=== PATIENT | female | born 1975 | race Caucasian/White ===

== ENCOUNTER 2016-09-27 03:04 | Emergency (ER) | payer MEDICAID ==
[~2016-09-27] VITALS: Ht 170.2 cm; Wt 86.0 kg
[2016-09-27] MEDS ORDERED: LIDOCAINE 1%, 20ML ONE (03:16)
[2016-09-27] MEDS ORDERED: BACITRACIN ZINC OINT 500U/GM, 0.9 GM ONE (04:11)
[2016-09-27 04:19] VITALS: BP 147/69
[2016-09-27] MEDS ORDERED: LIDOCAINE 1%, 10ML INFIL ONE (04:30)
[2016-09-27] MEDS ORDERED: LIDOCAINE 1%, 20ML INFIL ONE (04:30)
== END 2016-09-27 04:30 | disposition home or self-care (01) ==
LOC: ED 04:24
DX: S61.011A Laceration without foreign body of right thumb without damage to nail, initial encounter (principal); W26.0XXA Contact with knife, initial encounter; Y93.G1 Activity, food preparation and clean up; Y92.89 Other specified places as the place of occurrence of the external cause; Y99.8 Other external cause status
CPT/HCPCS: 12001; 99283; J3490